=== PATIENT | male | born 1985 | race Two or more races ===

== ENCOUNTER 2016-11-04 01:29 | Emergency (ER) | payer MEDICAID ==
[~2016-11-04] VITALS: Ht 175.3 cm; Wt 68.0 kg
[~2016-11-04 01:29] MED LIST: DOCU50CA2; HYDR5CAP
[2016-11-04 02:16] VITALS: BP 126/79
[2016-11-04] MEDS ORDERED: ACETAMINOPHEN 325 MG TAB PO ONE (03:00)
== END 2016-11-04 03:28 | disposition home or self-care (01) ==
LOC: ER 01:32
DX: S01.01XA Laceration without foreign body of scalp, initial encounter (principal); Y08.89XA Assault by other specified means, initial encounter; Y93.89 Activity, other specified; Y99.8 Other external cause status; Y92.89 Other specified places as the place of occurrence of the external cause
CPT/HCPCS: 12001

== ENCOUNTER 2021-01-09 18:07 | Emergency (ER) | payer SELFPAY ==
[~2021-01-09] VITALS: Ht 195.6 cm; Wt 81.6 kg
[2021-01-09 18:08] VITALS: BP 139/92
== END 2021-01-09 22:07 | disposition left against medical advice (07) ==
LOC: ER 18:15
DX: S61.411A Laceration without foreign body of right hand, initial encounter (principal); Z53.21 Procedure and treatment not carried out due to patient leaving prior to being seen by health care provider; W18.39XA Other fall on same level, initial encounter; Y93.89 Activity, other specified; Y92.89 Other specified places as the place of occurrence of the external cause; Y99.8 Other external cause status